=== PATIENT | male | born 1995 | race African-American/Black ===

== ENCOUNTER 2016-10-03 08:46 | Emergency (ER) | payer OTHER ==
[2016-10-03 08:53] VITALS: BP 124/79; PULSE 95; RESP 16; TEMP 98.1; O2SAT 98
[2016-10-03] MEDS ORDERED: IBUPROFEN 600 MG TAB PO ONE (08:57)
--- NOTE | 2016-10-03 09:49 | EDPHY ---
H & P Smoking Status: Current some day smoker Time Seen by Provider: 10/03/16 08:57 HPI/ROS: CHIEF COMPLAINT: right foot pain HISTORY OF PRESENT ILLNESS: 20-year-old male presents emergency department complaining of right foot and ankle pain. Patient reports twisted his foot while walking down the stairs last night. He has pain with weight-bearing. Patient denies numbness or tingling to this foot. He reports multiple previous ankle sprains from soccer injuries. (Laurita Massey) Physical Exam: GEN: Awake, alert, oriented, no acute distress RESP: nl resp effort MSK: Right ankle with ATFL, CFL and deltoid ligament tenderness to palpation, tenderness to base of 5th metatarsal, tenderness to dorsal aspect of foot, no Achilles tenderness, 2+ pedal pulses, sensation intact to light touch, no proximal fibular tenderness SKIN: No break in skin (Laurita Massey) Constitutional: Initial Vital Signs Temperature (C) 36.7 C 10/03/16 08:49 Heart Rate 95 10/03/16 08:49 Respiratory Rate 16 10/03/16 08:49 Blood Pressure 124/79 H 10/03/16 08:49 O2 Sat (%) 98 10/03/16 08:49 O2 Delivery Mode Room Air Allergies/Adverse Reactions: No Known Allergies Allergy (Verified 10/03/16 08:49) Home Medications: Medication Instructions Recorded Hydrocodone/APAP 5/325 [[place] 1 tab PO Q4H PRN #14 tab 10/03/16 5/325] MDM/Departure - MDM Diagnostics: Foot x-ray independently reviewed by me- RIGHT ANKLE (3 views, at 9:17 AM): There appears to be some small avulsion fracture fragments distal to the lateral cuboid, near the base of the right fifth metatarsal. The medial, lateral, and posterior malleoli are intact. The mortise is maintained, and the talar dome is well-contoured. The subtalar joint is normal. There is no ankle joint effusion. Impression: Avulsion fracture fragments proximal to the base of fifth metatarsal. RIGHT FOOT (3 Views, at 9:18 AM): On the oblique view, there is an avulsion fracture fragment off of the base of the fifth metatarsal, distal to the cuboid. The calcaneocuboid joint is anatomically aligned, as are the tarsometatarsal structures. A minor hallux valgus configuration is seen. Impression: Avulsion fracture involving the base of the fifth metatarsal. Dictated By: Rock Ashby MD (Laurita Massey) Medications Given: Discontinued Medications Hydrocodone Bitart/Acetaminophen ([place] 5/325) 1 tab PO EDNOW ONE Stop: 10/03/16 10:06 Last Admin: 10/03/16 10:11 Dose: 1 tab Ibuprofen (Motrin) 600 mg PO EDNOW ONE Stop: 10/03/16 08:58 Last Admin: 10/03/16 09:02 Dose: 600 mg ED Course/Re-evaluation: The patient wasevaluatedand managed by themidlevel provider. My co-signature indicates that Stan reviewed this chart and I agree with the findings and plan of care asdocumented. I am the secondary supervisingphysician. (Germaine Campbell) - Depart Disposition: Home, Routine, Self-Care Clinical Impression: Fracture of 5th metatarsal Condition: Good Instructions: Foot Fracture in Adults (ED) Additional Instructions: Rest, ice, elevate, take 650 mg of Tylenol (acetaminophen) every 8 hours as needed for pain and swelling, take 1 [place] every 4-6 hours as needed for severe pain. Do not take more than 3000 mg of acetaminophen in 24 hours Return to the emergency department for any numbness, tingling, discoloration of you limb or other concerns. Keep walking boot in place, use crutches for ambulation. Follow up with the orthopedist at 1st available appointment, call Tuesday to schedule this appointment. Stand Alone Forms: School Excuse Prescriptions: Hydrocodone/APAP 5/325 [[place] 5/325] 1 tab PO Q4H PRN #14 tab PRN Reason: Pain, Moderate Referrals: Cesilia Jackson MD [Medical Doctor] - As per Instructions
[2016-10-03] MEDS ORDERED: HYDROCODONE/APAP 5/325 TAB PO ONE (10:05)
== END 2016-10-03 10:24 | disposition home or self-care (01) ==
DX: S92.351A Displaced fracture of fifth metatarsal bone, right foot, initial encounter for closed fracture (principal); F17.200 Nicotine dependence, unspecified, uncomplicated; X58.XXXA Exposure to other specified factors, initial encounter; Y93.01 Activity, walking, marching and hiking
CPT/HCPCS: L4386

== ENCOUNTER 2017-02-13 16:01 | Emergency (ER) | payer OTHER ==
[2017-02-13 16:14] VITALS: TEMP 97.7
[2017-02-13] MEDS ORDERED: NS 1,000 ML IV ONE (16:28)
[2017-02-13 16:38] LABS: HEMATOCRIT 42.4 % (40.0-51.0); HEMOGLOBIN 14.6 g/dL (13.7-17.5); MEAN CELL HEMOGLOBIN 30.4 pg (27.9-34.1); MEAN CELL HEMOGLOBIN CONCENTR. 34.4 g/dL (32.4-36.7); MEAN CELL VOLUME 88.1 fL (81.5-99.8); RED BLOOD CELL COUNT 4.81 10^6/uL (4.40-6.38); RED CELL DISTRIBUTION WIDTH 14.3 % (11.5-15.2)
--- NOTE | 2017-02-13 16:40 | EDPHY ---
H & P Stated Complaint: right rib pain/fell off railing. Source: Patient Exam Limitations: No limitations - Medical/Surgical History Hx Asthma: No Hx Chronic Respiratory Disease: No Hx Diabetes: No Hx Cardiac Disease: No Hx Renal Disease: No Hx Cirrhosis: No Hx Alcoholism: No Hx HIV/AIDS: No Hx Splenectomy or Spleen Trauma: No Other PMH: denies - Social History Smoking Status: Current some day smoker HPI/ROS: CHIEF COMPLAINT: Fall, rib pain, right upper quadrant pain HISTORY OF PRESENT ILLNESS: Patient reports he was sitting on a rail within the past 2 hours when he slipped and fell. He landed on a sharp object on the right side of his ribs. He sustained an abrasion and significant pain in the area. It is worse with any kind of movement or inspiration. Unable to take a deep breath. Pain also involves the right upper quadrant of the abdomen. It is worse with any movement palpation. He described mild nausea but no vomiting. No blood in the urine. No flank pain. No head or neck injury. No loss of conscious. No chest or back pain. No other associated complaints or modifying factors. REVIEW OF SYSTEMS: Ten systems reviewed and are negative unless otherwise noted in the HPI PAST MEDICAL HISTORY: Denies any medical history SOCIAL HISTORY: Occasional alcohol. Denies smoking. 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 No outward signs of trauma. No hematoma or depression Eyes: Pupils equal and round, no conjunctival pallor or injection ENT, Mouth: Mucous membranes moist Neck: Normal inspection, supple, non-tender no crepitus. No step-off. No deformity. Painless range of motion all planes Respiratory: Lungs are clear to auscultation. No wheezing, rhonchi or crackles. Splinting with inspiration. Moderate tenderness over the right mid axillary line over the lower ribs Cardiovascular: Regular rate and rhythm. No murmur. Pulses intact distally. Gastrointestinal: Abdomen is soft and nondistended. There is moderate tenderness in the right upper quadrant. No rigidity. Mild guarding of the right upper quadrant. Back: non-tender, no bony abnormalities Neurological: A&O, nonfocal, normal gait Skin: Warm and dry, no rash. Superficial abrasion on the right lower ribs and right upper quadrant. No lacerations. Extremities: Nontender, no pedal edema Psychiatric: Mood and affect normal DIFFERENTIAL DIAGNOSES: Including but not limited to rib fracture, rib contusion, pneumothorax, hemothorax, hepatic injury MDM: 4:28 p.m. Mechanical fall with moderate right-sided rib pain and moderate to severe right upper quadrant tenderness. Due to the guarding in the right upper quadrant I have ordered a CT scan of the abdomen and pelvis. Also ordered x-ray of the ribs. Suspected this is simply a rib fracture 5:[address] Notified by radiologist. CT scan of the abdomen and pelvis reveals no acute findings. X-ray of the chest and ribs reveals no acute findings. I have informed the patient of these negative findings. I suspect this is likely contusion of the ribs or costochondritis. Discharged home with short course of pain medication and pulmonary hygiene. He is to follow up with primary care physician or on campus at [facility] in 2 days for re-evaluation. Return here for any worsening pain, fever, chills, difficulty breathing. He is comfortable this plan, I have answered all his questions, and he is discharged home stable condition SUPERVISION: Patient was evaluated in conjunction with the supervising physician. Please see their note for details. (Liam Terrazas) Constitutional: Initial Vital Signs Temperature (C) 97.7 F 02/13/17 16:11 Heart Rate 78 02/13/17 16:11 Respiratory Rate 20 02/13/17 16:11 Blood Pressure 116/72 02/13/17 16:11 O2 Sat (%) 98 02/13/17 16:11 O2 Delivery Mode Room Air Allergies/Adverse Reactions: No Known Allergies Allergy (Verified 02/13/17 16:10) Home Medications: Medication Instructions Recorded Hydrocodone/APAP 5/325 [[place] 1 - 2 tab PO Q4H PRN #10 tab 02/13/17 5/325 (*)] Medical Decision Making ED Course/Re-evaluation: This patient was evaluated and managed by the PA. I discussed the case with him , have reviewed the chart, and agree with the evaluation and treatment. I am the secondary supervising physician. (Blanca Gresham) - Data Points Laboratory Results: Laboratory Results 02/13/17 11:30 Medications Given: Discontinued Medications Sodium Chloride (Ns) 1,000 mls @ 0 mls/hr IV ONCE ONE; Wide Open PRN Reason: Protocol Stop: 02/13/17 16:29 Last Admin: 02/13/17 16:46 Dose: 1,000 mls Morphine Sulfate (Morphine) 4 mg IVP EDNOW ONE Stop: 02/13/17 16:29 Last Admin: 02/13/17 16:45 Dose: 4 mg Departure - Departure Disposition: Home, Routine, Self-Care Clinical Impression: Contusion of rib on right side Qualifiers: Encounter type: initial encounter Qualified Code(s): S20.211A - Contusion of right front wall of thorax, initial encounter Blunt abdominal trauma Qualifiers: Encounter type: initial encounter Qualified Code(s): S39.81XA - Other specified injuries of abdomen, initial encounter Condition: Good Instructions: Acute Abdominal Pain (ED), Rib Contusion (ED) Additional Instructions: 1. Medications as discussed 2. follow up with student health this week 3. Return to ED as discussed as needed Referrals: [facility],. [Primary Care Provider] - As per Instructions Stand Alone Forms: School Excuse Prescriptions: Hydrocodone/APAP 5/325 [[place] 5/325 (*)] 1 - 2 tab PO Q4H PRN #10 tab PRN Reason: Pain, Moderate
[2017-02-13] MEDS ORDERED: IOPAMIDOL (ISOVUE-300) 100 ML BTL ONE (16:54)
[2017-02-13 17:58] VITALS: BP 133/88; PULSE 80; RESP 16; O2SAT 96
== END 2017-02-13 17:58 | disposition home or self-care (01) ==
DX: S20.211A Contusion of right front wall of thorax, initial encounter (principal); S39.91XA Unspecified injury of abdomen, initial encounter; F17.200 Nicotine dependence, unspecified, uncomplicated; W01.198A Fall on same level from slipping, tripping and stumbling with subsequent striking against other object, initial encounter
CPT/HCPCS: 82947-QW; 96374; Q9967

== ENCOUNTER 2018-12-08 22:11 | Emergency (ER) | payer OTHER ==
--- NOTE | 2018-12-08 22:36 | EDPHY ---
H & P Stated Complaint: intermittent chest pain Time Seen by Provider: 12/08/18 22:17 HPI/ROS: HPI The patient presents with chest pain which has been present intermittently for several years though has become worse over the last 3 hr. It occurred slowly while he was sitting down tonight and is aching and tight in nature in his left chest. He has not had any shortness of breath, nausea, vomiting, dizziness, diaphoresis. He reports he has had this pain before though this is lasted more than usual. He reports increased stress over the last few days as related to a trying to moved to [place].. REVIEW OF SYSTEMS 10 systems were reviewed and negative with the exception of the elements mentioned in the history of present illness. PMHx: Healthy Soc Hx: Lives locally, daily marijuana use, no tobacco use FHx: Father of an OR at 47 years old PHYSICAL General Appearance: Alert, no distress Eyes: Pupils equal and round no pallor or injection ENT, Mouth: Mucous membranes moist Respiratory: There are no retractions, lungs are clear to auscultation Cardiovascular: Regular rate and rhythm Gastrointestinal: Abdomen is soft and non-tender, no masses, bowel sounds normal Neurological: A&O, moves all extremities Skin: Warm and dry, no rashes Musculoskeletal: Neck is supple non tender Extremities: symmetrical, full range of motion Psychiatric: Patient is oriented X 3, there is no agitation Source: Patient Exam Limitations: No limitations - Personal History Current Tetanus Diphtheria and Acellular Pertussis (TDAP): Unsure - Medical/Surgical History Hx Asthma: No Hx Chronic Respiratory Disease: No Hx Diabetes: No Hx Cardiac Disease: No Hx Renal Disease: No Hx Cirrhosis: No Hx Alcoholism: No Hx HIV/AIDS: No Hx Splenectomy or Spleen Trauma: No Other PMH: denies - Social History Smoking Status: Current some day smoker Constitutional: Initial Vital Signs Temperature (C) 36.9 C 12/08/18 22:14 Heart Rate 70 12/08/18 22:14 Respiratory Rate 20 12/08/18 22:14 Blood Pressure 126/79 H 12/08/18 22:14 O2 Sat (%) 97 12/08/18 22:14 O2 Delivery Mode Room Air Allergies/Adverse Reactions: No Known Allergies Allergy (Verified 12/08/18 22:14) Home Medications: Medication Instructions Recorded NK [No Known Home Meds] 12/08/18 Medical Decision Making - Diagnostics EKG Interpretation: EKG: Complete interpretation has been separately recorded in the [facility] archive. Summary impression: Normal sinus rhythm Imaging Results: Imaging Impressions Chest X-Ray 12/08/18 22:31 Impression: No acute findings in the chest. Imaging: I viewed and interpreted images myself Differential Diagnosis: 23-year-old male who is healthy presents with 3 hr of chest tightness which began at rest with no associated features. Here he is well-appearing, has normal vital signs. His exam is unremarkable. Differential diagnosis includes GERD, anxiety, less likely ACS or pulmonary embolism. Patient's chest x-ray and EKG were both unremarkable. I reassessed him and we discussed potential causes of chest pain including anxiety, GERD, costochondritis, muscle strain. I have advised him to monitor his symptoms at home and return if worse in any way. He is happy with this plan. Departure - Departure Disposition: Home, Routine, Self-Care Clinical Impression: Chest pain Qualifiers: Chest pain type: unspecified Qualified Code(s): R07.9 - Chest pain, unspecified Condition: Good Instructions: Chest Pain (ED) Additional Instructions: The cause of your chest pain does not seem to be coming from your heart. This could be related to a muscle strain, anxiety, upset of your stomach. Please monitor your symptoms at home and if your worse he should come back to the emergency department for re-evaluation. Otherwise you can follow up with a primary care doctor or [facility]. Referrals: NONE *PRIMARY CARE P,. [Primary Care Provider] - As per Instructions [facility],. [Clinic] - As per Instructions
--- NOTE | 2018-12-08 22:55 | CPEKG ---
Test Reason : OPEN Blood Pressure : / mmHG Vent. Rate : 066 BPM Atrial Rate : 065 BPM P-R Int : 151 ms QRS Dur : 098 ms QT Int : 406 ms P-R-T Axes : 051 066 026 degrees QTc Int : 426 ms Sinus rhythm Confirmed by Jinny Da Silva ([id number]) on 12/08/2018 10:55:20 PM Referred By: Jinny Da Silva Confirmed By:Jinny Da Silva
[2018-12-08 23:40] VITALS: BP 122/72
== END 2018-12-08 23:40 | disposition home or self-care (01) ==
DX: R07.9 Chest pain, unspecified (principal); F17.200 Nicotine dependence, unspecified, uncomplicated; Z82.49 Family history of ischemic heart disease and other diseases of the circulatory system